=== PATIENT | male | born 1975 | race Caucasian/White ===

== ENCOUNTER 2020-05-02 07:47 | Outpatient (CLI) | payer OTHER, SELFPAY ==
--- NOTE | 2020-05-02 12:43 | RAD ---
EXAM: Chest PA and lateral: HISTORY: Preop COMPARISON: none FINDINGS: Lung azul are clear. Vascular markings are normal. Heart and mediastinum appear unremarkable. Osseous structures are unremarkable. IMPRESSION: Unremarkable chest
[2020-05-02 16:23] LABS: Hemoglobin 16.5 g/dL (14.0-18.0); Mean Corpuscular HGB CONC 34.8 g/dL (32.0-36.0); Mean Corpuscular Hemoglobin 33.1 pg (27.0-31.0); Platelet Count 214 thou/uL (130-400); RBC Distribution Width 12.1 % (11.5-14.5); White Blood Cell (WBC) Count 8.2 thou/uL (4.8-10.8)
[2020-05-02 16:36] LABS: Anion Gap 14 mmol/L (10-20); BUN (Urea Nitrogen) 16 mg/dL (8.9-20.6); Calc. Creatinine Clearance 0 mL/min (70-130); Calcium 9.4 mg/dL (7.8-10.44); Carbon Dioxide 23 mmol/L (22-29); Chloride 106 mmol/L (98-107); Estimated GFR-MDRD 63; Glucose 121 mg/dL (70-105); Potassium 4.4 mmol/L (3.5-5.1); Sodium 139 mmol/L (136-145)
[2020-05-03 14:18] LABS: SARS-CoV-2 MS2 Positive; SARS-CoV-2 N Gene Negative; SARS-CoV-2 S Gene Negative; SARS-CoV-2 by NAA Not Detected (NotDetected); SARS-CoV-2 orf1ab Negative
--- NOTE | 2020-05-03 15:39 | EKG ---
Test Reason : Blood Pressure : / mmHG Vent. Rate : 103 BPM Atrial Rate : 103 BPM P-R Int : 156 ms QRS Dur : 106 ms QT Int : 338 ms P-R-T Axes : 047 029 -08 degrees QTc Int : 442 ms Sinus tachycardia RSR' or QR pattern in V1 suggests right ventricular conduction delay Cannot rule out Anterior infarct , age undetermined Abnormal ECG Confirmed by MAURICIO VÁZQUEZ ([id number]) on 05/03/2020 3:39:24 PM Referred By: ZULY Confirmed By:MAURICIO VÁZQUEZ
[2020-05-04 08:16] LABS: % Free PSA 17.5 % (.); Total PSA 0.4 ng/mL (0.0-4.0)
== END 2020-05-02 07:48 | disposition home or self-care (01) ==
LOC: LABBT 07:47 → SCSRAD 07:48
PROVIDERS: ATTEND Urology
DX: Z01.818 Encounter for other preprocedural examination (principal); Z11.59 Encounter for screening for other viral diseases
CPT/HCPCS: 71046; 80048; 84153; 84154; 85027; 87635; 93005; 93010; U0003

== ENCOUNTER 2020-05-04 12:01 | Day surgery (SDC) | payer SELFPAY ==
[2020-05-02 09:46] VITALS: BMI 38.7
[~2020-05-04 12:01] MED LIST: Dexamethasone 20 MG/5 ML VIAL ONE; Lidocaine 1% PF 5 ML VIAL ONE; Ondansetron PF 4 MG/2 ML Vial ONE; PHENYLEPHRINE-NS 100 MCG/ML 10 ML SYRINGE ONE; PROPOFOL 200 MG/20 ML VIAL ONE
[2020-05-04] MEDS ORDERED: Iothalamate Meglumine 60% 50 ML VIAL FS ONE (13:39)
[2020-05-04] MEDS ORDERED: Fentanyl 100 MCG/2 ML VIAL ONE ×3 (13:50→17:00)
[2020-05-04] MEDS ORDERED: Midazolam HCl 2 mg/2 ml Vial ONE (13:50)
[2020-05-04] MEDS ORDERED: B & O ONE (14:30)
--- NOTE | 2020-05-04 18:17 | RAD ---
XR IVP RETROGRADE (LEFT): 05/04/20 HISTORY: Stent placement. FINDINGS/IMPRESSION: Six images from a left sided retrograde pyelogram demonstrate opacification of the left pelvicalyceal system and ureter and placement of a left sided ureteral stent. There is suggestion of a calculus me dial to the stent at L1-2 level. POS: OFF
[2020-05-04] MEDS ORDERED: HYDROcodone/Acetaminophen 5/325 mg Tablet ONE (18:35)
--- NOTE | 2020-05-05 08:18 | OP ---
DATE OF PROCEDURE: 05/04/2020 PREOPERATIVE DIAGNOSES: 1. Left ureteropelvic junction calculus, 1.1 cm. (N20.1). 2. Left renal calculus greater than 1 cm. (N20.0). 3. Horseshoe kidney. POSTOPERATIVE DIAGNOSES: 1. Left ureteropelvic junction calculus, 1.1 cm. (N20.1). 2. Left renal calculus greater than 1 cm. (N20.0). 3. Horseshoe kidney. 4. Radiopaque calculi consistent with calcium oxalate. PROCEDURES PERFORMED: 1. Left ureteroscopy with laser lithotripsy, stone recovery, and left-sided double-J ureteral stent. ([id number]). 2. Left-sided retrograde pyelography. ([id number]). SPECIMENS REMOVED: Multiple stone fragments from laser fragmentation of multiple calculi resulting in approximately 50 fragments in total, many of which were basketable and recovered for chemical analysis. ESTIMATED BLOOD LOSS: Less than 5 mL. OPERATIVE FINDINGS: 1. Multiple radiopaque stones. 2. 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 3. Horseshoe kidney. DRAINS AND TUBES: An indwelling left-sided 4.5-Cymraes x 28 cm double-J ureteral stent without string was left in place. BRIEF HISTORY AND INDICATION FOR PROCEDURE: Mr. Davis Morales is a very pleasant 44-year-old white male, who was initially evaluated by the [facility] Department in [place]. He underwent CT scanning there. Later, he followed up in the [facility] and was referred [place] [facility] for evaluation and management of his kidney stones a few days ago. The patient opted to proceed to the operating room for treatment of his stones as his initial stone event was back in November. Due to COVID and other issues, he did not proceed with kidney stone treatment until making the active decision to do that, and we proceeded to the operating room today. DESCRIPTION OF PROCEDURE: The patient was appropriately identified in the preoperative holding area and informed written consent was obtained. The patient was subsequently transported to the operative suite, placed in the supine position on cysto-fluorographic table. The patient underwent induction of general anesthesia using LMA airway. After anesthesia was achieved, we repositioned the patient in the supine lithotomy position and he was prepped and draped in usual sterile fashion for cystoscopic assessment. Sequential compression devices were present bilaterally to the lower extremities on induction of anesthesia and throughout the procedure including the postoperative recovery area. The patient was evaluated fluoroscopically, was found to have radiopaque calculi, which had relatively square appearance to them, actually cuboid in the area of the left ureteropelvic junction and the left kidney itself. His kidney outline suggested a horseshoe kidney, which has been previously described on CT scan imaging. The patient then underwent placement of two Glidewires 0.035 angled, Stiff Shaft wires were placed in the left renal pelvis using a cystoscope. On cystoscopic examination, the patient's urethra had some annular bands consistent with a degree of urethral stricture disease. The patient's prostate gland was relatively enlarged for his age and moderately obstructive. There was large median lobe present. We found no evidence of stones within the patient's bladder. Left ureter appeared to be possibly wider than normal, but there was no evidence of recent passage of stone. We advanced a 0.035 angled Glidewire using a 5-Cymraes Pollack catheter. Subsequently removed the scope and then re-scoped the patient, placing a second 0.035 inch Glidewire into the renal pelvis. This neatly coiled around one of the stones. We transitioned then to a semi-rigid scope to verify that there were no stones in the distal ureter and there were none. We evaluated nearly to the UPJ level. The patient then underwent placement of a 12/14-Cymraes [employer] hydrophilic access sheath. This was well-hydrated and coated with KY jelly prior to placement. We performed dilation initially using the inner sheath. Subsequently, we noticed some difficulty with passage through the area at the upper brim of the pelvis due to narrowing in this area, which was likely physiologic secondary to blood supply issues. The patient underwent balloon dilation using a 4 cm x 12-Cymraes balloon dilator. After this gentle balloon dilation of the obstruction at the level of the iliac vessels, we were able to place the 12/14-Cymraes [employer] access sheath. The patient underwent flexible ureteroscopy. We advanced a flexible ureteroscope up into the patient's renal pelvis, identified stones as described, which were radiopaque in characteristic and had platelike sharp areas as well as dark black colored stones, suggesting calcium oxalate. I performed laser lithotripsy of these stones using 50 hertz settings on a holmium laser with joules setting to 0.25. The patient's stones were fragmented to approximately 25 to 30, 3 mm stones each, and then these were stone basket recovered using a Zero tip Nitinol basket. This was relatively gentle, given the small size of the stones. We recovered multiple fragments, which were sent for chemical analysis. Some of these stone fragments were too small for recovery using a Zero tip Nitinol basket and are not recovered. The patient was left fluorographically stone free in the collecting system on the left side. I placed a 4.5-Cymraes x 28 cm double-J ureteral stent in the left ureter. I removed the string from that, this will be left indwelling. COMPLICATIONS: None evident. SPECIMENS: Stones from the left ureter and the left kidney sent as one specimen and a urine aspirate from the collecting system. 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 Job ID: [id number]
== END 2020-05-04 19:07 | disposition home or self-care (01) ==
LOC: SDC 12:01
PROVIDERS: ATTEND Urology
PROC: 0T778DZ Dilation of Left Ureter with Intraluminal Device, Via Natural or Artificial Opening Endoscopic (ICD-10-PCS; principal; 2020-05-04)
PROC: 0TC48ZZ Extirpation of Matter from Left Kidney Pelvis, Via Natural or Artificial Opening Endoscopic (ICD-10-PCS; principal; 2020-05-04)
DX: N20.2 Calculus of kidney with calculus of ureter (principal); Q63.1 Lobulated, fused and horseshoe kidney; N40.3 Nodular prostate with lower urinary tract symptoms; N13.8 Other obstructive and reflux uropathy; I25.10 Atherosclerotic heart disease of native coronary artery without angina pectoris; F17.210 Nicotine dependence, cigarettes, uncomplicated; E66.9 Obesity, unspecified; Z68.39 Body mass index [BMI] 39.0-39.9, adult; Z79.899 Other long term (current) drug therapy
CPT/HCPCS: 74420; 82365; 87086; 88300; J0690; J1100; J2250; J2405; J2704; J3010